=== PATIENT | male | born 1955 | race Caucasian/White ===

== ENCOUNTER 2023-08-28 07:15 | Day surgery (SDC) | payer MEDICARE, OTHER ==
--- NOTE | 2023-08-20 11:42 | NUR ---
PT WAS SCHEDULED FOR INPERSON PRE-ADMIT FOR HIS SURGERY. PT DID NOT SHOW UP FOR APPOINTMENT. CALL TO DR KAPLAN OFFICE AND WAS TOLD BY [facility] STAFF THAT HIS APPOINTMENT FOR TODAY WAS CANCLED, AND THAT THE PT WILL OBTAIN LABS AND EKG AT [facility]. AND THAT HE WILL BE A PHONE PRE-ADMIT NOW. 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 NEVER RECEVED ANY INFORMATION TO CHANGE THIS TO A PHONE PRE-ADMIT. PT PLACED ON SCHEDULE NOW FOR 08-25-22 FOR PHONE PRE-ADMIT.
[~2023-08-28] VITALS: Ht 180.3 cm; Wt 136.0 kg
[~2023-08-28 07:15] MED LIST: FENOFIBRATE160 MG PO; LEVOTHYROXINE75 MCG PO; LIPITOR40 MG PO; LO-DOSE ASPIRIN81 MG PO; MULTI VITAMIN1 EACH PO; VALSARTAN-HCTZ1 EAC3 PO; VITAMIN D250 MCG PO
[2023-08-28 07:36] VITALS: BP 133/83
[2023-08-28] MEDS ORDERED: ALLOPURINOL100 MG PO (07:40)
[2023-08-28] MEDS ORDERED: DICLOFENAC SODI75 MG PO (09:54)
[2023-08-28] MEDS ORDERED: HYDROCODON-ACE1 EA10 PO (09:54)
--- NOTE | 2023-08-28 10:23 | NUR ---
08/28/23 1023 Sheets,Dalila 0988 PT ARRIVED TO PACU IN [place] AND ON 8L VIA MASK. SHALLOW BREATHING NOTED. 1005 PT WAKES TO TACTILE STIMULI AND IS ENCOURAGED TO COUGH AND DEEP BREATH. PT ABLE TO DO SO AND NOSIES CLEARED WITH COUGHING. 1015 PT SLIGHTLY RESTLESS IN BED AND OPENS HIS EYES OFF AND ON. PT REPORTS PAIN IN HIS BACK, PT ROLLED TO LEFT SIDE PER REQUEST TO HELP BACK PAIN. PT REPORTS PAIN IS A LITTLE BETTER. O2 SAT 90%. ICE AND PILLOW IN PLACE.
--- NOTE | 2023-08-28 11:20 | NUR ---
THIS RN ANSWERED CALL LIGHT FOR PT NEED TO URINE VOID. PT STANDS AT BEDSIDE AND REPORTS NO DIZZINESS OR NAUSEA. PT GAIT IS STEADY AT THIS TIME. PT STANDBY ASSIST TO BATHROOM FOR 100 ML CLEAR/YELLOW URINE VOID. PT REPORTS NO INCREASE IN PAIN W/AMBULATION. PT REPORTS PAIN 0/10 AT THIS TIME, NO PRN PAIN MEDS GIVEN. PT GETTING DRESSED AT THIS TIME W/'S ASSISTANCE. CALL LIGHT WITHIN REACH.
[2023-08-28 11:29] VITALS: BP 105/65
--- NOTE | 2023-08-28 11:40 | NUR ---
THIS RN IN ROOM FOR DISCHARGE EDUCATION, PT AND PT STATE VERBAL UNDERSTANDING. ALL QUESTIONS ANSWERED AT THIS TIME. IV DC'ED, CATH TIP INTACT, GAUZE/COBAN IN PLACE. PT OFF OF UNIT VIA WC TO PASSENGER SIDE OF 'S CAR. PT REPORTS NO FURTHER NEEDS OR QUESTIONS AT THIS TIME, ALL BELONGINGS IN PT POSSESSION. DISCUSSED WITH PT IMPORTANCE OF TAKING ALLOPURINOL DAILY D/T 'S DISCUSSION W/DR. KAPLAN AND OPERATIVE FINDINGS, PT STATES VERBAL UNDERSTANDING TO THIS.
--- NOTE | 2023-08-29 09:32 | OR ---
[facility] [address], [place] [address] Signed DATE OF OPERATION: 08/28/2023 SURGEON: Sally Rodriguez MD PREOPERATIVE DIAGNOSIS: Medial meniscus tear, left knee. POSTOPERATIVE DIAGNOSES: 1. Medial meniscus tear, left knee. 2. Significant chondrocalcinosis. PROCEDURE PERFORMED: Left knee arthroscopy with partial meniscectomy. MINK FARMER: None. ANESTHESIA: General. BLOOD LOSS: Minimal. BRIEF HISTORY: Lili is a 67-year-old gentleman with pain and instability in his knee. MRI was consistent with fairly substantial posteromedial meniscus tear. Risks and benefits of the operative treatment were discussed with him and he elected to proceed. DESCRIPTION OF PROCEDURE: Once consent was obtained, he was taken to the operating room after adequate anesthesia. He was placed on the operating room table. The right leg was flexed, abducted, and externally rotated on a well-padded leg hendrickson. The left was placed in a well-padded leg hendrickson with no tourniquet. The leg was then prepped and draped in a standard sterile fashion. The portal sites were injected with 0.25% Marcaine with epinephrine. A standard inferolateral and superolateral portals were established and the scope was introduced into the knee. ARTHROSCOPIC FINDINGS: Marked synovitis was noted throughout the knee. There was significant chondrocalcinosis in all articular surfaces, both menisci and the ACL. The lateral compartment was Electronically Signed By: SALLY RODRIGUEZ MD 08/29/23 0932 PATIENT NAME: LILI DUTTON OPERATIVE REPORT DATE OF : 59 REPORT #: [id number] PHYSICIAN: SALLY RODRIGUEZ MD PCP: KATHY HERNANDEZ REPORT IS CONFIDENTIAL AND NOT TO BE RELEASED WITHOUT AUTHORIZATION [facility] [address] [place], [place] [address], [place] [address] Signed intact. Medial compartment showed diffuse grade 1 two slight grade 2 changes. There was a large complex posteromedial meniscus tear. DESCRIPTION OF PROCEDURE: After the diagnostic arthroscopy was undertaken, the standard inferomedial portal was made after localization using a spinal needle. The meniscus tear was then trimmed back using straight biters, followed by the shaver to feather out the meniscal ends and cleaned up the debris. The tear was fairly extensive in the posteromedial corner. The significant chondrocalcinosis in the posterior meniscus was also debrided. The scope was then withdrawn. Portals were closed with 3-0 nylon and the knee was injected with 60 mg Toradol. The wounds were dressed with Adaptic, ABD, and Sam wrap. He tolerated the procedure well. All sponge, needle, and instrument counts were correct. Sally Rodriguez MD BA/ATIF /[id number] Copies: ~ Electronically Signed By: SALLY RODRIGUEZ MD 08/29/23 0932 PATIENT NAME: LILI DUTTON OPERATIVE REPORT DATE OF : 59 REPORT #: [id number] PHYSICIAN: SALLY RODRIGUEZ MD PCP: KATHY HERNANDEZ REPORT IS CONFIDENTIAL AND NOT TO BE RELEASED WITHOUT AUTHORIZATION
== END 2023-08-28 11:40 | disposition home or self-care (01) ==
LOC: DS 07:15
PROVIDERS: ATTEND Specialist
PROC: 0SBD4ZZ Excision of Left Knee Joint, Percutaneous Endoscopic Approach (ICD-10-PCS; principal; 2023-08-28 10:50)
DX: S83.232A Complex tear of medial meniscus, current injury, left knee, initial encounter (principal); M11.269 Other chondrocalcinosis, unspecified knee; E78.00 Pure hypercholesterolemia, unspecified; I10 Essential (primary) hypertension; X58.XXXA Exposure to other specified factors, initial encounter
CPT/HCPCS: 01400; J0131; J0330; J0690; J1885; J2001; J2250; J2405; J2704; J7121